=== PATIENT | female | born 1950 | race Caucasian/White ===

== ENCOUNTER → 2017-07-17 | Outpatient (CLI) | payer MEDICARE, BC ==
[~2017-07-17] MED LIST: AMBIEN 5MG TABLE5 MG PO; CELEBREX 200MG200 MG PO; EFFEXOR-XR150 MG PO; FISH OIL; LEVOTHYROXINE0.05 M1 PO; SIMVASTATIN10 MG PO; ZANAFLEX2 M1 PO
== END ==
LOC: MC.RAD 13:18
DX: Z12.31 Encounter for screening mammogram for malignant neoplasm of breast (principal)

== ENCOUNTER → 2019-01-23 | Outpatient (CLI) | payer MEDICARE, BC | LOC: MC.RAD 12-29 14:00 | DX: Z12.31 Encounter for screening mammogram for malignant neoplasm of breast (principal) ==

== ENCOUNTER 2019-03-31 13:56 | Outpatient (CLI) | payer MEDICARE, BC ==
[~2019-03-31] VITALS: Ht 152.4 cm; Wt 66.0 kg
[~2019-03-31 13:56] MED LIST changes: -LEVOTHYROXINE0.05 M1 PO; +SYNTHROID0.05 MG/TA PO; +ZANAFLEX CAPSULE2 MG PO; -ZANAFLEX2 M1 PO
[2019-03-31 14:09] VITALS: BP 131/59; PULSE 61; TEMP 99.1
[2019-03-31] MEDS ORDERED: SYNTHROID0.075 MG/T PO (14:11)
[2019-03-31] MEDS ORDERED: ZYRTEC 10MG10 MG PO (14:12)
[2019-03-31] MEDS ORDERED: MOBIC 7.5MG7.5 MG PO (14:13)
[2019-03-31] MEDS ORDERED: ZOCOR 10MG10 MG PO (14:14)
[2019-03-31] MEDS ORDERED: CYMBALTA 60MG60 MG PO (14:18)
[2019-03-31] MEDS ORDERED: XANAX 0.5MG0.5 MG PO (14:19)
[2019-03-31] MEDS ORDERED: MASON NATURAL2000 IU PO (14:20)
--- NOTE | 2019-03-31 14:55 | NUR ---
Pt vince prolia well. Pt discharged per ambulation.
== END 2019-03-31 15:15 | disposition home or self-care (01) ==
LOC: EUO 13:56
DX: M81.0 Age-related osteoporosis without current pathological fracture (principal)
CPT/HCPCS: J0897

== ENCOUNTER 2019-10-13 14:02 | Outpatient (CLI) | payer MEDICARE, BC ==
[~2019-10-13] VITALS: Ht 152.4 cm; Wt 66.0 kg
[~2019-10-13 14:02] MED LIST changes: +CYMBALTA 60MG60 MG PO; +MASON NATURAL2000 IU PO; +MOBIC 7.5MG7.5 MG PO; +SYNTHROID0.075 MG/T PO; +XANAX 0.5MG0.5 MG PO; +ZOCOR 10MG10 MG PO; +ZYRTEC 10MG10 MG PO
[2019-10-13 14:25] VITALS: BP 105/56; PULSE 56; TEMP 98.7
[2019-10-13] MEDS ORDERED: CELEBREX 200MG200 MG PO (14:33)
== END 2019-10-13 14:34 | disposition home or self-care (01) ==
LOC: EUO 14:02
DX: M81.0 Age-related osteoporosis without current pathological fracture (principal)
CPT/HCPCS: J0897

== ENCOUNTER → 2019-10-15 | Outpatient (CLI) | payer MEDICARE, BC | LOC: COL.RAD 11:11 | DX: E04.2 Nontoxic multinodular goiter (principal) ==

== ENCOUNTER → 2019-11-09 | Outpatient (CLI) | payer MEDICARE, BC ==
[~2019-11-09] VITALS: Ht 152.4 cm; Wt 66.5 kg
[~2019-11-09] MED LIST changes: +NASONEX SPRAY17 GM NS; +SINEQUAN 2525 MG/CAP PO; +ZANAFLEX 4MG TAB4 MG PO
[2019-11-09 13:15] VITALS: BP 137/73; PULSE 66
[2019-11-09 14:25] VITALS: BP 172/65; PULSE 52
== END ==
LOC: COL.RAD 12:58
DX: E04.2 Nontoxic multinodular goiter (principal)

== ENCOUNTER → 2019-11-10 | Outpatient (CLI) | payer MEDICARE, BC | LOC: MHCPAIN 13:20 | DX: R51 Headache (principal); M54.12 Radiculopathy, cervical region; M47.22 Other spondylosis with radiculopathy, cervical region | CPT/HCPCS: G0463 ==

== ENCOUNTER → 2019-12-03 | Outpatient (CLI) | payer MEDICARE, BC | LOC: MHCPAIN 10:40 | DX: M54.2 Cervicalgia (principal); R51 Headache | CPT/HCPCS: G0463; J1100; Q9967 ==

== ENCOUNTER 2020-04-13 15:06 | Outpatient (CLI) | payer MEDICARE, BC ==
[~2020-04-13] VITALS: Ht 152.4 cm; Wt 66.2 kg
[2020-04-13 15:20] VITALS: BP 128/62; PULSE 59; TEMP 98.4
[2020-04-13] MEDS ORDERED: VITAMIN D250 MCG PO (15:29)
== END 2020-04-13 15:40 | disposition home or self-care (01) ==
LOC: EUO 15:06
DX: M81.0 Age-related osteoporosis without current pathological fracture (principal)
CPT/HCPCS: J0897

== ENCOUNTER → 2020-04-20 | Outpatient (CLI) | payer MEDICARE, BC ==
[~2020-04-20] MED LIST changes: +VITAMIN D250 MCG PO
== END ==
LOC: MHCPAIN 14:33
DX: M47.812 Spondylosis without myelopathy or radiculopathy, cervical region (principal); M54.2 Cervicalgia; R51 Headache; M54.81 Occipital neuralgia
CPT/HCPCS: G0463

== ENCOUNTER → 2020-04-21 | Outpatient (CLI) | payer MEDICARE, BC | LOC: MHCPAIN 10:27 | DX: M47.812 Spondylosis without myelopathy or radiculopathy, cervical region (principal); M54.2 Cervicalgia; R51 Headache ==

== ENCOUNTER → 2020-04-26 | Outpatient (CLI) | payer MEDICARE, BC | LOC: MHCPAIN 12:29 | DX: M47.812 Spondylosis without myelopathy or radiculopathy, cervical region (principal); M54.2 Cervicalgia; R51 Headache | CPT/HCPCS: G0463 ==

== ENCOUNTER → 2020-05-05 | Outpatient (CLI) | payer MEDICARE, BC | LOC: MHCPAIN 13:56 | DX: M47.812 Spondylosis without myelopathy or radiculopathy, cervical region (principal); M54.2 Cervicalgia; R51 Headache ==

== ENCOUNTER → 2020-05-10 | Outpatient (CLI) | payer MEDICARE, BC | LOC: MHCPAIN 12:45 | DX: M47.812 Spondylosis without myelopathy or radiculopathy, cervical region (principal); M54.2 Cervicalgia; R51 Headache; G89.29 Other chronic pain | CPT/HCPCS: G0463 ==

== ENCOUNTER → 2020-05-19 | Outpatient (CLI) | payer MEDICARE, BC | LOC: MHCPAIN 08:48 | DX: M47.812 Spondylosis without myelopathy or radiculopathy, cervical region (principal); M54.2 Cervicalgia; R51 Headache | CPT/HCPCS: J1100; J3010 ==

== ENCOUNTER → 2020-08-09 | Outpatient (CLI) | payer MEDICARE, BC | LOC: MHCPAIN 12:55 | DX: M47.812 Spondylosis without myelopathy or radiculopathy, cervical region (principal); M79.18 Myalgia, other site; M54.2 Cervicalgia; M25.512 Pain in left shoulder; R51.9 Headache, unspecified | CPT/HCPCS: G0463; J1040 ==

== ENCOUNTER 2020-10-21 13:06 | Outpatient (CLI) | payer MEDICARE, BC ==
[~2020-10-21] VITALS: Ht 152.4 cm; Wt 65.7 kg
[2020-10-21 13:38] VITALS: BP 114/74; PULSE 70; TEMP 98.3
== END 2020-10-21 14:00 | disposition home or self-care (01) ==
LOC: EUO 13:06
DX: M81.0 Age-related osteoporosis without current pathological fracture (principal)
CPT/HCPCS: J0897

== ENCOUNTER → 2020-11-15 | Outpatient (CLI) | payer MEDICARE, BC ==
[~2020-11-15] MED LIST changes: +DESYREL 50MG50 MG PO
== END ==
LOC: MHCPAIN 13:04
DX: M47.812 Spondylosis without myelopathy or radiculopathy, cervical region (principal); M54.2 Cervicalgia; G89.29 Other chronic pain
CPT/HCPCS: G0463

== ENCOUNTER 2021-05-04 14:00 | Outpatient (CLI) | payer MEDICARE, BC ==
[~2021-05-04] VITALS: Ht 152.4 cm; Wt 64.7 kg
[~2021-05-04 14:00] MED LIST changes: -DESYREL 50MG50 MG PO
[2021-05-04 14:20] VITALS: BP 117/73; PULSE 73; TEMP 98.6
[2021-05-04] MEDS ORDERED: DESYREL 50MG50 MG PO (14:25)
== END 2021-05-04 16:00 | disposition home or self-care (01) ==
LOC: EUO 14:00
DX: M81.0 Age-related osteoporosis without current pathological fracture (principal)
CPT/HCPCS: J0897

== ENCOUNTER 2021-11-07 14:56 | Outpatient (CLI) | payer MEDICARE, BC ==
[~2021-11-07] VITALS: Ht 152.4 cm; Wt 68.0 kg
[~2021-11-07 14:56] MED LIST changes: +DESYREL 50MG50 MG PO; -SYNTHROID0.05 MG/TA PO
[2021-11-07 15:28] VITALS: BP 128/82; PULSE 66; TEMP 98.4
== END 2021-11-09 09:28 ==
LOC: EUO 14:56
DX: M81.0 Age-related osteoporosis without current pathological fracture (principal)
CPT/HCPCS: J0897

== ENCOUNTER → 2022-01-02 | Outpatient (CLI) | payer MEDICARE, BC | LOC: MC.RAD 12-27 14:15 | DX: Z12.31 Encounter for screening mammogram for malignant neoplasm of breast (principal) ==

== ENCOUNTER 2022-05-10 13:28 | Outpatient (CLI) | payer MEDICARE, BC ==
[~2022-05-10] VITALS: Ht 152.4 cm; Wt 67.4 kg
[2022-05-10 14:09] VITALS: BP 117/76; PULSE 65; TEMP 98.4
== END 2022-05-10 14:23 ==
LOC: EUO 13:28
DX: M81.0 Age-related osteoporosis without current pathological fracture (principal)
CPT/HCPCS: J0897

== ENCOUNTER 2022-11-15 15:05 | Outpatient (CLI) | payer MEDICARE, BC ==
[~2022-11-15] VITALS: Ht 152.4 cm; Wt 67.4 kg
[2022-11-15 15:51] VITALS: BP 135/78; PULSE 60; TEMP 98.5
== END 2022-11-15 15:52 ==
LOC: EUO 15:05
DX: M81.0 Age-related osteoporosis without current pathological fracture (principal)
CPT/HCPCS: J0897

== ENCOUNTER 2022-12-12 05:32 | Observation (INO) | payer MEDICARE, BC ==
[~2022-12-12] VITALS: Ht 149.9 cm; Wt 66.2 kg
[2022-12-12] VITALS (13 sets, daily range): BP systolic 101–136; BP diastolic 37–60; PULSE 57–77; TEMP 97.6–100.3
[2022-12-12] MEDS ORDERED: ZYRTEC 10MG10 MG PO (06:58)
--- NOTE | 2022-12-12 17:17 | NUR ---
PATIENT ALERT AND ORIENTED X4. VSS. PATIENT HERE FOR DANIKA HERNIA REPAIR. LAP SITES X4 CDI. PATIENT WEANED FROM OXYGEN POST SURGERY. POST OPS COMPLETE. PATIENT TOLERATING FLUIDS AND EATING DINNER. PATIENT UP TO BATHROOM AND VOIDED. PATIENT IN CHAIR. CALL LIGHT IN REACH.
--- NOTE | 2022-12-12 22:53 | NUR ---
PATIENT ASSESSED AND GIVEN NIGHTLY MEDICATIONS. SHE IS AOX4 AND PLEASANT TO SPEAK WITH. SHE WAS EDUCATED ABOUT PRN PAIN MEDICATIONS AND THAT SHE HAS TO ASK FOR THEM. ON GENERAL DIET, NO STRAWS. SCD'S ON PATIENT. ABD BINDER IN PLACE. SHE HAS NOT ASKED FOR PAIN MEDICATIONS THUS FAR. BED IN LOWEST POSITION. CALL LIGHT IN REACH.
[2022-12-13] VITALS (8 sets, daily range): BP systolic 75–136; BP diastolic 31–66; PULSE 50–85; TEMP 96.3–98.7
--- NOTE | 2022-12-13 07:50 | NUR ---
Pt A&O X4. SHIFT ASSESSMENT PERFORMED. MARGARET BORGES NOTIFIED ABOUT LOW BP AND HR. OTHER VS WNL AND STABLE. NO FURTHER REQUESTS AT THIS TIME. BED IN LOW POSTION AND CALL LIGHT WITHIN REACH. CARE ONGOING.
--- NOTE | 2022-12-13 09:26 | NUR ---
Dr. Tellez notified 0800 of low BP 83/42 with HR in 50s. Patient feeling okay, slightly dizzy with some complaints of moderate abdominal pain. Has not received pain medication since about 11pm. Normal saline bolus order given via telephone with orders to encourage oral intake and let provider know if no improvement.
--- NOTE | 2022-12-13 10:59 | NUR ---
Dr. Tellez notified after completion of the first bolus, SBP still in 70s-80s, pt drowsy at times with moderate pain. Repeat bolus ordered with lab work. Orders repeated by this RN to verify before placing order.
[2022-12-13 11:12] LABS: MEAN CELL VOLUME 94 fl (80.0-100.0); MEAN CORPUSCULAR HGB CONC 34 g/dl (33.0-37.0); PLATELET COUNT 242 K/mm3 (130-400); RED BLOOD COUNT 3.03 M/mm3 (4.10-5.30); REDCELL DISTRIBUTION WIDTH-CV 13.2 % (11.5-14.5)
[2022-12-13 11:14] LABS: HEMATOCRIT 28.5 % (37.0-47.0); HEMOGLOBIN 9.8 g/dl (12.5-16.0); MEAN CORPUSCULAR HEMOGLOBIN 32 pg (27-31)
[2022-12-13 11:29] LABS: ALBUMIN 2.6 gm/dL (3.4-4.8); BILIRUBIN,TOTAL 0.2 mg/dL (0.2-1.2); CALCIUM 7.6 mg/dL (8.4-10.2); CREATININE, serum 1.27 mg/dL (0.57-1.11); POTASSIUM 3.9 mmol/L (3.5-4.5); TOTAL PROTEIN 4.7 gm/dL (6.2-8.1)
--- NOTE | 2022-12-13 11:35 | NUR ---
Initial visit: Drafter Refrigeration went by room on rounds. Pt was resting and content. Pt has no needs right now. [employer] will follow up as needed.
--- NOTE | 2022-12-13 19:25 | NUR ---
RECEIVED CHANGE OF SHIFT REPORT FROM DAY SHIFT RN.
--- NOTE | 2022-12-13 20:31 | NUR ---
WANTS TO TAKE HS MEDS AT 2300.
[2022-12-14 00:05] VITALS: BP 102/80; PULSE 62; TEMP 98.6
[2022-12-14 04:59] VITALS: BP 105/47; PULSE 62; TEMP 98.5
[2022-12-14 06:12] LABS: BASO # 0.1 K/mm3 (0.0-0.2); BASO % 0.5 % (0.0-2.0); EOS # 0.2 K/mm3 (0.0-0.7); EOS % 1.9 % (0.0-4.0); GRAN # 7.7 K/mm3 (1.4-6.5); GRAN % 76.2 % (42.2-75.2); HEMOGLOBIN 11.1 g/dl (12.5-16.0); LYMPH # 1.6 K/mm3 (1.2-3.4); LYMPH % 15.9 % (20.0-51.0); MEAN CELL VOLUME 96 fl (80.0-100.0); MEAN CORPUSCULAR HEMOGLOBIN 32 pg (27-31); MEAN CORPUSCULAR HGB CONC 33 g/dl (33.0-37.0); MEAN PLATELET VOLUME 9.4 fl (7.4-10.4); MONO # 0.5 K/mm3 (0.1-0.6); MONO % 5.3 % (1.7-9.3); PLATELET COUNT 289 K/mm3 (130-400); RED BLOOD COUNT 3.51 M/mm3 (4.10-5.30); REDCELL DISTRIBUTION WIDTH-CV 13.2 % (11.5-14.5)
[2022-12-14 06:15] LABS: HEMATOCRIT 33.8 % (37.0-47.0)
[2022-12-14 06:18] LABS: CALCIUM 7.4 mg/dL (8.4-10.2); CREATININE, serum 1.07 mg/dL (0.57-1.11); POTASSIUM 4.3 mmol/L (3.5-4.5)
--- NOTE | 2022-12-14 07:12 | NUR ---
CHANGE OF SHIFT REPORT GIVEN TO DAY SHIFT RNWU.
[2022-12-14 08:00] VITALS: BP 114/45; PULSE 60; TEMP 97.9
--- NOTE | 2022-12-14 08:03 | NUR ---
Pt REPORTS NAUSEA AND NEW PAIN IN THE RIGHT SHOULDER THIS AM, SEE PAIN ASSESSMENT. SHIFT ASSESSMENT PERFORMED ANS VS TAKEN, SEE DOCUMENTATION. VS STABLE. NO FURTHER REQUESTS OR ORDERS AT THIS TIME. BED IN LOW POSITION, CALL LIGHT WITHIN REACH. CARE ONGOING.
[2022-12-14] MEDS ORDERED: ULTRAM 50MG TAB50 MG PO (09:22)
[2022-12-14] MEDS ORDERED: TYLENOL 500MG500 MG PO (09:22)
[2022-12-14] MEDS ORDERED: ZOFRAN 4MG T4 MG/TAB PO (09:22)
--- NOTE | 2022-12-14 11:13 | NUR ---
Reviewed discharge instructions with pt and family. Discussed new medications as well as follow up appointment. ABD binder in place, pt aware she is to wear it for one week. Pt awaiting her lunch at this time, informed her that nursing staff will take her out via wheelchair when she is ready
--- NOTE | 2022-12-14 11:25 | NUR ---
INT IV discontinued. Patient dressed with family at bedside ready for discharge. Pt stated she would like to eat lunch first.
--- NOTE | 2022-12-14 13:41 | NUR ---
Layup Worker met with patient and daughter, Shira (ph#[phone]) to discuss discharge planning. Patient lives alone in [place] and sees Dr. Traylor for primary care. Patient obtains medications either from the [facility] mail in program or through [facility]. Patient has no difficulties affording her medications. Patient uses a cane as needed and is normally independent with ADLS. Patient provided that her DPOA-HC would be her children, Shira and Giovani. Patient plans to return home at time of discharge. Discharge Plan: Home
== END 2022-12-14 11:50 | disposition home or self-care (01) ==
LOC: SDCO 05:32 → SURG 11:07 → SDCO 12-13 13:15 → SURG 12-13 13:16
PROVIDERS: ADMIT Surgery
DX: K43.0 Incisional hernia with obstruction, without gangrene (principal)
CPT/HCPCS: OP; C1781; G0378; J0690; J1100; J1170; J1885; J2405; J2704; J3010; J3480; J7040

== ENCOUNTER → 2023-12-13 | Outpatient (CLI) | payer MEDICARE, BC ==
[~2023-12-13] MED LIST changes: +COZAAR 50MG50 MG/TAB PO; +SYNTHROID0.05 MG/TA PO; +TYLENOL 500MG500 MG PO; +ULTRAM 50MG TAB50 MG PO; +ZOFRAN 4MG T4 MG/TAB PO
== END ==
LOC: MC.RAD 12:58
DX: Z12.31 Encounter for screening mammogram for malignant neoplasm of breast (principal)

== ENCOUNTER 2024-05-26 09:38 | Inpatient (IN) | payer MEDICARE, BC ==
[2024-05-26] VITALS (8 sets, daily range): BP systolic 100–151; BP diastolic 63–80; PULSE 42–61; TEMP 97.5–98.4
[~2024-05-26] VITALS: Ht 149.9 cm; Wt 68.2 kg
[2024-05-26] MEDS ORDERED: Sotalol 80 MG TAB PO BID PO SCH (09:58)
[2024-05-26] MEDS ORDERED: Ondansetron 4 MG/2 ML VIAL IV PRN (10:00)
[2024-05-26] MEDS ORDERED: Magnes Hydrox (MOM) 80 MG/ML 30 ML CUP PO PRN (10:00)
[2024-05-26] MEDS ORDERED: Bisacodyl 5 MG TAB PO PRN (10:00)
[2024-05-26] MEDS ORDERED: NS Flush 10 ML SYRINGE PRN ICA (10:00)
[2024-05-26] MEDS ORDERED: Acetaminophen 325 MG TAB PO PRN (10:15)
[2024-05-26] MEDS ORDERED: ELIQUIS 5MG PO (10:20)
--- NOTE | 2024-05-26 10:38 | NUR ---
Pt arrived to medical floor from admissions. Admission assessment and intake completed. Oriented pt to room, call light, and bathroom. 22g IV started into Rt hand x1 attempt by this nurse. Pt tolerated well with no complaints. Home medications, allergies, and pharmacy reviewed with pt. Pt denies pain at this time. Pt has personal glasses at bedside. Pt has no request at this time. Call light within reach.
[2024-05-26 11:02] LABS: BASO # 0.1 K/mm3 (0.0-0.2); BASO % 0.7 % (0.0-2.0); EOS # 0.1 K/mm3 (0.0-0.7); GRAN % 65.5 % (42.2-75.2); HEMATOCRIT 37.8 % (37.0-47.0); HEMOGLOBIN 12.9 g/dl (12.5-16.0); LYMPH # 2.4 K/mm3 (1.2-3.4); LYMPH % 26.7 % (20.0-51.0); MEAN CELL VOLUME 92 fl (80.0-100.0); MEAN CORPUSCULAR HEMOGLOBIN 32 pg (27-31); MEAN CORPUSCULAR HGB CONC 34 g/dl (33.0-37.0); MEAN PLATELET VOLUME 8.8 fl (7.4-10.4); MONO # 0.5 K/mm3 (0.1-0.6); MONO % 5.8 % (1.7-9.3); PLATELET COUNT 334 K/mm3 (130-400); RED BLOOD COUNT 4.09 M/mm3 (4.10-5.30); REDCELL DISTRIBUTION WIDTH-CV 12.9 % (11.5-14.5)
[2024-05-26 11:12] LABS: INR 1.6 (0.8-3.0); PROTHROMBIN TIME 17.1 SECONDS (9.7-12.8)
[2024-05-26 11:21] LABS: ALBUMIN 3.6 g/dL (3.4-4.8); BILIRUBIN,TOTAL 0.4 mg/dL (0.2-1.2); CALCIUM 9.5 mg/dL (8.4-10.2); CREATININE, serum 1.3 mg/dL (0.57-1.11); MAGNESIUM 1.9 mg/dL (1.6-2.6); POTASSIUM 4.9 mEq/L (3.5-4.5); TOTAL PROTEIN 6.6 g/dl (6.2-8.1)
--- NOTE | 2024-05-26 13:21 | NUR ---
SW met with patient to complete initial assessment for discharge planning. Patient's son Sher ([phone]) present which patient consented for him to remain in room. Patient verified that she lives alone in [facility]. Patient reports to be independent and active at home. Patient lists her daughter Shira Fried ([phone]) and her son Sher as DPOA. Patient sees Dr Barbara Traylor as her PCP and she uses [facility] pharmacy. Patient states her only DME is a cane and grab bars. Patient plans to return home at discharge and denies any needs. Discharge plan: Home
--- NOTE | 2024-05-26 18:54 | NUR ---
PATIENT RESTING IN BED WITH TV ON WITH NO FAMILY PRESENT WTIH NO ACUTE DISTRESS NOTED. PATIENT ON ROOM AIR. TELEMETRY INTACT. INT TO RIGHT HAND INTACT WITH NO COMPLICATIONS NOTED. BEDSIDE SHIFT REPORT COMPLETED WITH SJ AT THIS TIME. PATIENT C/O HEADACHE. PO TYLENOL GIVEN PER MD ORDER. PATIENT STATES PAIN LEVEL IS 5 ON SCALE OF 0 TO 10. PATIENT DENIES ANY OTHER NEEDS. BED IN LOW POSITION WITH WHEELS LOCKED WITH RAILS UP X2 AND CALL LIGHT WITHIN REACH.
--- NOTE | 2024-05-26 19:25 | NUR ---
PATIENT RESTING IN BED WITH TV ON WITH NO FAMILY PRESENT WITH NO ACUTE DISTRESS NOTED. PATIENT ON ROOM AIR. TELEMETRY INTACT. INT TO RIGHT HADN INTACT WITH NO COMPLICATIONS NOTED. ASSESSMENT AND VITAL SIGNS COMPLETED AT THIS TIME. PATIENT TOLERATED WELL. PATIENT DENIES ANY NEEDS AT THIS TIME. BED IN LOW POSITION WITH WHEELS LOCKED WITH RAILS UP X2 AND CALL LIGHT WITHIN REACH.
[2024-05-26] MEDS ORDERED: Atorvastatin 10 MG TAB PO SCH (21:00)
[2024-05-26] MEDS ORDERED: Apixaban 5 MG TABLET PO SCH (21:00)
[2024-05-26] MEDS ORDERED: tiZANidine 4 MG TAB PO SCH (21:00)
[2024-05-26] MEDS ORDERED: Melatonin 3 MG TAB PO PRN (21:00)
[2024-05-26] MEDS ORDERED: traZODone 50 MG TAB PO SCH (21:00)
[2024-05-26] MEDS ORDERED: NS Flush 10 ML SYRINGE BID ICA SCH (21:00)
[2024-05-26] MEDS ORDERED: Simvastatin 10 MG **** subs to Atorvastatin 5 MG PO SCH (21:00)
--- NOTE | 2024-05-26 21:36 | NUR ---
PATIENT RESTING IN BED WITH TV OFF WITH NO FAMILY PRESENT WITH NO ACUTE DISTRESS NOTED. PATIENT ON ROOM AIR. INT TO RIGHT HAND INTACT WITH NO COMPLICATIONS NOTED. TELEMETRY INTACT. MEDICATION ADMINISTRATION COMPLETED AT THIS TIME. PATIENT GIVEN PITCHER OF WATER WITH ICE. PATIENT TOLERATED WELL. ALL NEEDS MET. BED IN LOW POSITION WITH WHEELS LOCKED WITH RAILS UP X2 AND CALL LIGHT WITHIN REACH.
[2024-05-27] VITALS (8 sets, daily range): BP systolic 82–145; BP diastolic 49–81; PULSE 34–52; TEMP 97.4–99.1
--- NOTE | 2024-05-27 04:35 | NUR ---
VANNA ASKED WHO WAS PACKING TRACTOR MACHINE OPERATOR FOR CARDIOLOGY. VANNA STATED TO CALLED DR. HUTCHINSON AROUND 6AM.
--- NOTE | 2024-05-27 06:07 | NUR ---
dr. santos called primary nurse back after being paged. DR. SANTOS INFORMED OF PATIENT BLOOD PRESSURE OF 82/62 WHICH WAS TAKEN MANNUALLY AND HR OF 34. TELEPHONE ORDER RECIEVED TO DECREASE SOTALOL TO 40 MG PO BID INSTEAD OF 80 MG PO BID.
[2024-05-27 07:26] LABS: BASO # 0.1 K/mm3 (0.0-0.2); BASO % 0.9 % (0.0-2.0); EOS # 0.3 K/mm3 (0.0-0.7); EOS % 2.8 % (0.0-4.0); GRAN # 4.8 K/mm3 (1.4-6.5); GRAN % 53.1 % (42.2-75.2); LYMPH # 3.3 K/mm3 (1.2-3.4); MEAN CELL VOLUME 95 fl (80.0-100.0); MEAN CORPUSCULAR HEMOGLOBIN 31 pg (27-31); MEAN CORPUSCULAR HGB CONC 33 g/dl (33.0-37.0); MEAN PLATELET VOLUME 9.8 fl (7.4-10.4); MONO # 0.6 K/mm3 (0.1-0.6); MONO % 6.9 % (1.7-9.3); PLATELET COUNT 306 K/mm3 (130-400); RED BLOOD COUNT 3.83 M/mm3 (4.10-5.30)
[2024-05-27 07:27] LABS: HEMATOCRIT 36.5 % (37.0-47.0)
[2024-05-27 07:40] LABS: CALCIUM 8.9 mg/dL (8.4-10.2); CREATININE, serum 1.27 mg/dL (0.57-1.11); MAGNESIUM 1.8 mg/dL (1.6-2.6); POTASSIUM 4.6 mEq/L (3.5-4.5)
[2024-05-27] MEDS ORDERED: DULoxetine 60 MG CAP PO SCH (09:00)
[2024-05-27] MEDS ORDERED: Cetirizine 10 MG TAB PO SCH (09:00)
[2024-05-27] MEDS ORDERED: Celecoxib 200 MG CAP PO SCH (09:00)
--- NOTE | 2024-05-27 09:22 | NUR ---
PATIENT'S HEART RATE REMAILS IN HIGH 30S-LOW 40S. JOSEPH RN WITH CARDIOLOGY NOTIFIED. HOLDING SOTALOL. PATIENT IS ASYMPTOMATIC. WILL MONITOR
--- NOTE | 2024-05-27 10:28 | NUR ---
Initial visit; Patient thanked Hotel Front Office Manager for looking in on her as she undergoes the 'Sotalol Initiation.' She states that she isn't doing well as she is experiencing low blood pressure and low heart rate. Hotel Front Office Manager was pleased that Danilo requested prayer. Follow prayer Danilo thanked for prayer and well wishes. Hotel Front Office Manager will follow-up.
--- NOTE | 2024-05-27 12:28 | NUR ---
THIS RN RECEIVED VERBAL ORDERS FROM CARDIOLOGY TO CONTINUE TO HOLD SOTALOL AND IMPLEMENT FALL PRECAUTIONS. THIS RN EXPLAINED TO PATIENT THE REASON FOR HOLDING MEDICATION AND TO CALL BEFORE GETTING UP FOR SAFETY PURPOSES. PATIENT REMAINS ASYMPTOMATIC WITH BRADYCARDIA.
--- NOTE | 2024-05-27 19:14 | NUR ---
PATIENT RESTING IN BED WITH TV ON WITH NO FAMILY PRESENT WITH NO ACUTE DISTRESS NOTED. PATIENT ON ROOM AIR. INT TO RIGHT HAND INTACT WITH NO COMPLICATIONS NOTED. TELEMETRY INTACT. BEDSIDE SHIFT REPORT COMPLETED WITH CHARITY AT THIS TIME. PATIENT DENIES ANY NEEDS. BED IN LOW POSITION WITH WHEELS LOCKED WITH RAILS UP X3 AND CALL LIGHT WITHIN REACH.
--- NOTE | 2024-05-27 22:03 | NUR ---
PATIENT RESTING IN BED WATCHING TV WITH NO FAMILY PRESENT WITH NO ACUTE DISTRESS NOTED. PATIENT ON ROOM AIR. TELEMETRY INTACT. INT TO RIGHT HAND INTACT WITH NO COMPLICATIONS NOTED. MEDICATION ADMINISTRATION AND ASSESSMENT COMPLETED AT THIS TIME. PATIENT TOLERATED WELL. PATIENT REQUESTED ICE AND WATER. BOTH GIVEN. ALL NEEDS MET. BED IN LOW POSITION WITH WHEELS LOCKED WITH RAILS UP X3 AND CALL LIGHT WITHIN REACH
[2024-05-28] VITALS (18 sets, daily range): BP systolic 11–164; BP diastolic 53–86; PULSE 38–64; TEMP 97.4–98.6
[2024-05-28 06:38] LABS: BASO # 0.1 K/mm3 (0.0-0.2); BASO % 0.8 % (0.0-2.0); EOS # 0.3 K/mm3 (0.0-0.7); EOS % 2.4 % (0.0-4.0); GRAN # 5.8 K/mm3 (1.4-6.5); GRAN % 56.2 % (42.2-75.2); HEMATOCRIT 37.7 % (37.0-47.0); HEMOGLOBIN 12.9 g/dl (12.5-16.0); LYMPH # 3.5 K/mm3 (1.2-3.4); LYMPH % 33.9 % (20.0-51.0); MEAN CELL VOLUME 93 fl (80.0-100.0); MEAN CORPUSCULAR HEMOGLOBIN 32 pg (27-31); MEAN CORPUSCULAR HGB CONC 34 g/dl (33.0-37.0); MEAN PLATELET VOLUME 9.2 fl (7.4-10.4); MONO # 0.7 K/mm3 (0.1-0.6); MONO % 6.4 % (1.7-9.3); PLATELET COUNT 330 K/mm3 (130-400); RED BLOOD COUNT 4.07 M/mm3 (4.10-5.30); REDCELL DISTRIBUTION WIDTH-CV 12.7 % (11.5-14.5)
[2024-05-28 06:56] LABS: CALCIUM 9.3 mg/dL (8.4-10.2); CREATININE, serum 1.37 mg/dL (0.57-1.11); MAGNESIUM 1.8 mg/dL (1.6-2.6); POTASSIUM 4.9 mEq/L (3.5-4.5)
--- NOTE | 2024-05-28 07:46 | NUR ---
Bedside report received from MARGARET Barnett. Pt resting in bed with no complaints. Call light within reach.
--- NOTE | 2024-05-28 09:53 | NUR ---
Follow-up visit: Patient thanked for looking in on her again this morning and stated when asked by Spiral Winder, she is doing a little better. Spiral Winder mentioned that Danilo will remain in her prayers and she wished her well.
[2024-05-28] MEDS ORDERED: 1/2 NS 1,000 ML IV SCH (10:30)
[2024-05-28] MEDS ORDERED: ceFAZolin 1 G in Water For Injection,Sterile 10 ML IV SCH ×2 (10:30→16:51)
[2024-05-28] MEDS ORDERED: NS 1,000 ML IV.SOLN. IR SCH (16:03)
[2024-05-28] MEDS ORDERED: Water For Inj, Sterile 10 ML VIAL IJ SCH (16:06)
[2024-05-28] MEDS ORDERED: fentaNYL 50 MCG/ML 2 ML VIAL IV SCH (16:16)
[2024-05-28] MEDS ORDERED: Midazolam 2 MG/2 ML VIAL IV SCH (16:19)
[2024-05-28] MEDS ORDERED: Topical Skin Adhesive 1 EACH (1 ML) TOP ONE (16:33)
--- NOTE | 2024-05-28 17:10 | NUR ---
PATIENT ALERT AND ORIENTED, REPORTS MILD TIGHTNESS AND DISCOMFORT TO INCISION SITES. PATIENT TRANSFERRED TO BED VIA SLIDEBOARD AND TRANSPORTED TO [facility]. VITAL SIGNS TAKEN ON ARRIVAL, VSS. DRESSING SITE REMAINS CDI. TRANSFER OF CARE REPORT TO MARGARET GUSTAFSON. BED TO LOWEST POSITION, X3 BEDRAILS IN PLACE, CALL LIGHT WITHIN REACH.
--- NOTE | 2024-05-28 21:03 | NUR ---
PATIENT RESTING IN BED. STATES PAIN AROUND HER LEFT CHEST INCISION IS DOING WELL, CURRENTLY RATES 3/10. CALL LIGHT IS WITHIN REACH. BED IS LOCKED AND IN LOW POSITION.
[2024-05-29] VITALS: BP 162/83; PULSE 64; TEMP 98.2
[2024-05-29] MEDS ORDERED: ceFAZolin 1 G in Water For Injection,Sterile 10 ML IV SCH
[2024-05-29 00:43] VITALS: BP_SYST 162
[2024-05-29 04:15] VITALS: BP 102/58; PULSE 60; TEMP 97.5
[2024-05-29 04:24] VITALS: BP_SYST 102
[2024-05-29 06:55] LABS: BASO # 0.1 K/mm3 (0.0-0.2); BASO % 0.6 % (0.0-2.0); EOS # 0.2 K/mm3 (0.0-0.7); EOS % 1.9 % (0.0-4.0); GRAN # 6.5 K/mm3 (1.4-6.5); HEMATOCRIT 37.9 % (37.0-47.0); HEMOGLOBIN 12.9 g/dl (12.5-16.0); LYMPH # 2.8 K/mm3 (1.2-3.4); LYMPH % 26.8 % (20.0-51.0); MEAN CELL VOLUME 92 fl (80.0-100.0); MEAN CORPUSCULAR HEMOGLOBIN 31 pg (27-31); MEAN CORPUSCULAR HGB CONC 34 g/dl (33.0-37.0); MONO # 0.7 K/mm3 (0.1-0.6); MONO % 7.2 % (1.7-9.3); PLATELET COUNT 293 K/mm3 (130-400); RED BLOOD COUNT 4.14 M/mm3 (4.10-5.30); REDCELL DISTRIBUTION WIDTH-CV 12.8 % (11.5-14.5)
--- NOTE | 2024-05-29 06:55 | NUR ---
awake resting in bed, bedside shift report eceived from MARGARET Boothe
[2024-05-29 07:16] LABS: CALCIUM 8.6 mg/dL (8.4-10.2); CREATININE, serum 1.28 mg/dL (0.57-1.11); MAGNESIUM 1.7 mg/dL (1.6-2.6); POTASSIUM 4.3 mEq/L (3.5-4.5)
[2024-05-29 07:41] VITALS: BP 124/74; PULSE 62; TEMP 98
--- NOTE | 2024-05-29 08:10 | NUR ---
full assessment completed, see interventions for further info, nutrition technician to complete chest xray, dressing to pacemaker site and removal of loop recorder site CD&I, breakfast is here, denies needs
[2024-05-29 08:52] VITALS: BP_SYST 124
[2024-05-29] MEDS ORDERED: Apixaban 5 MG TABLET PO SCH (09:00)
[2024-05-29] MEDS ORDERED: BETAPACE 80MG80 MG PO (11:06)
[2024-05-29] MEDS ORDERED: CEPHALEXIN500 M1 PO (11:06)
--- NOTE | 2024-05-29 11:50 | NUR ---
discharge instructions given to patient and her son, verbalizes understanding, will get dressed and cll when ready to be discharged
--- NOTE | 2024-05-29 13:28 | NUR ---
Net Architect met with patient to present and review IM form. Patient verbalized understanding and provided signature. SW placed form in chart then provided copy to patient. Discharge Plan: Home
[2024-05-29] MEDS ORDERED: Cephalexin 500 MG CAP PO SCH (21:00)
== END 2024-05-29 11:50 | disposition home or self-care (01) | DRG 244 ==
LOC: MEDICAL 09:38
PROVIDERS: ADMIT Internal Medicine Cardiovascular Disease
PROC: 0JH606Z Insertion of Pacemaker, Dual Chamber into Chest Subcutaneous Tissue and Fascia, Open Approach (ICD-10-PCS; principal; 2024-05-28)
PROC: 02H63JZ Insertion of Pacemaker Lead into Right Atrium, Percutaneous Approach (ICD-10-PCS; 2024-05-28)
PROC: 02HK3JZ Insertion of Pacemaker Lead into Right Ventricle, Percutaneous Approach (ICD-10-PCS; 2024-05-28)
PROC: 0JPT02Z Removal of Monitoring Device from Trunk Subcutaneous Tissue and Fascia, Open Approach (ICD-10-PCS; 2024-05-28)
DX: I49.5 Sick sinus syndrome (principal); I48.0 Paroxysmal atrial fibrillation; I08.1 Rheumatic disorders of both mitral and tricuspid valves; Z95.818 Presence of other cardiac implants and grafts; Z88.1 Allergy status to other antibiotic agents; Z88.5 Allergy status to narcotic agent; Z88.8 Allergy status to other drugs, medicaments and biological substances
CPT/HCPCS: J0665-JZ; J0690; J2250; J3010; J7030

== ENCOUNTER 2024-06-22 13:26 | Outpatient (CLI) | payer MEDICARE, BC ==
[~2024-06-22] VITALS: Ht 149.9 cm; Wt 67.0 kg
[~2024-06-22 13:26] MED LIST changes: +BETAPACE 80MG80 MG PO; +CEPHALEXIN500 M1 PO; +Denosumab 60 MG/ML SYRINGE SQ ONE; +ELIQUIS 5MG PO
[2024-06-22 14:47] VITALS: BP 132/85; PULSE 82; TEMP 98.1
== END 2024-06-22 14:30 | disposition home or self-care (01) ==
LOC: EUO 13:26
DX: M81.0 Age-related osteoporosis without current pathological fracture (principal)
CPT/HCPCS: J0897